=== PATIENT | female | born 1995 | race Caucasian/White ===

== ENCOUNTER 2017-02-10 16:56 | Emergency (ER) | payer BC ==
[~2017-02-10] VITALS: Ht 175.3 cm; Wt 106.0 kg
[2017-02-10 17:07] VITALS: TEMP 37.2; Ht 175.3 cm; Wt 106.0 kg
[2017-02-10] MEDS ORDERED: SODIUM CHLORIDE 0.9% 1000ML 500 ML IV STA (18:12)
[2017-02-10] MEDS ORDERED: ONDANSETRON INJ 2 MG/ML 2 ML VIAL IV STA (18:12)
--- NOTE | 2017-02-10 18:19 | EMERGENCY ROOM VISIT NOTE ---
History Report prepared by Rose: Gaurav Benson Under the Supervision of: Dr. Blade Ruiz M.D. First contact with patient: 18:07 Chief Complaint: ABDOMINAL PAIN Stated Complaint: PAIN IN RT SIDE OF ABDOMEN, NAUSEA, VOMITING Nursing Triage Summary: right sided abd pain since 1230 today +n/v no urinary complaints History of Present Illness The patient is a 21 year old female who presents to the Emergency Room with complaints of persistent right sided abdominal pain beginning about 6 hours ago. She notes that she was getting ready for class when her pain began suddenly. She notes having nausea and vomiting at the time her pain began. She reports her pain does not radiate, but she has some back pain which is not as painful as her abdomen. The patient rates her pain a 6/10 in severity. She has had some burning with urination, but has not had any vaginal discharge. She is currently on her period which is normal for her, but does not feel like this is a menstrual cramp. The patient denies having any fever, or constipation. She has not taken anything for her pain, and she has never had this pain before. The patient denies any past surgeries, and any history of ovarian cysts. The patient reports taking control and Lexapro. Source of History: patient Onset: 6 hours ago Position: abdomen (right sided) Symptom Intensity: 6/10 Quality: other (abdominal pain) Timing: other (persistent) Associated Symptoms: + back pain, + nausea, + urinary symptoms (burning with urination), + vomiting, No fevers Note: The patient denies constipation. Review of Systems See HPI for pertinent positives & negatives. A total of 10 systems reviewed and were otherwise negative. Past Medical & Surgical Medical Problems: (1) No Known Active Medical Problems Family History No pertinent family history stated. Social History Smoking Status: Never Smoker Occupation Status: [email or web address] student Current/Historical Medications Scheduled Control Pills ( Control Pills), 1 TAB PO DAILY Escitalopram (Lexapro), 10 MG PO DAILY Ondasetron Odt (Zofran Odt), 4 MG SL Q6H Tamsulosin Hcl (Flomax), 0.4 MG PO DAILY Scheduled PRN Oxycodone Ir (Roxicodone Ir), 1-2 TAB PO Q4H PRN for Pain Allergies Coded Allergies: No Known Allergies (Unverified , 02/10/17) Physical Exam Vital Signs Date Time Temp Pulse Resp B/P Pulse Ox O2 Delivery O2 Flow Rate FiO2 02/10/17 21:43 68 16 143/78 98 Room Air 02/10/17 21:00 78 18 142/84 97 Room Air 02/10/17 19:00 76 18 156/98 96 02/10/17 17:07 37.2 95 16 152/88 97 Room Air Physical Exam GENERAL: Patient is in no acute distress. HEENT: No acute trauma, normocephalic atraumatic, mucous membranes moist, no nasal congestion, no scleral icterus. NECK: No stridor, no adenopathy, no meningismus, trachea is midline. LUNGS: Clear to auscultation bilaterally, no wheeze, no rhonchi, breath sounds equal. HEART: Without murmurs gallops or rubs, regular rate and rhythm. ABDOMEN: Soft; Moderate tenderness in the right lower quadrant; bowel sounds positive, no hernias, no peritonitis. EXTREMITIES: No cyanosis or edema, full range of motion of all the joints without pain or difficulty, no signs for acute trauma. NEUROLOGIC: Oriented x 3, no acute motor or sensory deficits, no focal weakness. SKIN: No rash, no jaundice, no diaphoresis. Medical Decision & Procedures ER Provider Diagnostic Interpretation: Radiology results and stated below per my review and radiologist interpretation: ABDOMEN AND PELVIS CT WITH IV AND ORAL CONTRAST FINDINGS: Lung bases are clear. Mild fatty infiltration of liver. Gallbladder is negative for distention. Pancreas and spleen unremarkable. Left kidney enhances uniformly. Trace amount of perinephric fluid right kidney with mild right hydronephrosis. 2.5 mm partially obstructing calculus proximal right ureter. Bowel pattern is considered nonobstructive throughout. Bladder is midline. There are no contained calcifications. There is no free fluid within the pelvic cul-de-sac. Small bilateral ovarian follicular cysts. Normal appendix. IMPRESSION: 1. 2.5 mm obstructing calculus proximal right ureter. 2. Mild right hydronephrosis. 3. Fat infiltration of liver. 4. Otherwise negative study Electronically signed by: Trae Lemus M.D. 02/10/2017 9:06 PM Dictated Date/Time: 02/10/2017 9:04 PM ABDOMINAL ULTRASOUND, RIGHT LOWER QUADRANT FINDINGS: The appendix is not identified on this exam. IMPRESSION: The appendix is not identified. Study is nondiagnostic for potential appendicitis. Electronically signed by: Trae Lemus M.D. 02/10/2017 8:07 PM Dictated Date/Time: 02/10/2017 8:07 PM Laboratory Results 02/10/17 18:50 Red Blood Count 4.57, Mean Corpuscular Volume 76.6, Mean Corpuscular Hemoglobin 25.8, Mean Corpuscular Hemoglobin Concent 33.7, Mean Platelet Volume 8.8, Neutrophils (%) (Auto) 88.2, Lymphocytes (%) (Auto) 7.6, Monocytes (%) (Auto) 3.8, Eosinophils (%) (Auto) 0.0, Basophils (%) (Auto) 0.2, Neutrophils # (Auto) 13.51, Lymphocytes # (Auto) 1.16, Monocytes # (Auto) 0.58, Eosinophils # (Auto) 0.00, Basophils # (Auto) 0.03 02/10/17 18:50 Test 02/10/17 18:50 White Blood Count 15.31 K/uL (4.8-10.8) Red Blood Count 4.57 M/uL (4.2-5.4) Hemoglobin 11.8 g/dL (12.0-16.0) Hematocrit 35.0 % (37-47) Mean Corpuscular Volume 76.6 fL (80-100) Mean Corpuscular Hemoglobin 25.8 pg (25-34) Mean Corpuscular Hemoglobin Concent 33.7 g/dl (32-36) Platelet Count 428 K/uL (130-400) Mean Platelet Volume 8.8 fL (7.4-10.4) Neutrophils (%) (Auto) 88.2 % Lymphocytes (%) (Auto) 7.6 % Monocytes (%) (Auto) 3.8 % Eosinophils (%) (Auto) 0.0 % Basophils (%) (Auto) 0.2 % Neutrophils # (Auto) 13.51 K/uL (1.4-6.5) Lymphocytes # (Auto) 1.16 K/uL (1.2-3.4) Monocytes # (Auto) 0.58 K/uL (0.11-0.59) Eosinophils # (Auto) 0.00 K/uL (0-0.5) Basophils # (Auto) 0.03 K/uL (0-0.2) RDW Standard Deviation 41.9 fL (36.4-46.3) RDW Coefficient of Variation 14.9 % (11.5-14.5) Immature Granulocyte % (Auto) 0.2 % Immature Granulocyte # (Auto) 0.03 K/uL (0.00-0.02) Urine Color YELLOW Urine Appearance CLEAR (CLEAR) Urine pH 7.0 (4.5-7.5) Urine Specific [place] 1.027 (1.000-1.030) Urine Protein NEG (NEG) Urine Glucose (UA) NEG (NEG) Urine Ketones 2+ (NEG) Urine Occult Blood 3+ (NEG) Urine Nitrite NEG (NEG) Urine Bilirubin NEG (NEG) Urine Urobilinogen NEG (NEG) Urine Leukocyte Esterase NEG (NEG) Urine WBC (Auto) 1-5 /hpf (0-5) Urine RBC (Auto) >30 /hpf (0-4) Urine Hyaline Casts (Auto) 1-5 /lpf (0-5) Urine Epithelial Cells (Auto) >30 /lpf (0-5) Urine Bacteria (Auto) NEG (NEG) Urine Mucus PRESENT (NONE PRSENT) Urine Yeast (Auto) (NONE PRSENT) Anion Gap 11.0 mmol/L (3-11) Est Creatinine Clear Calc Drug Dose 90.3 ml/min Estimated GFR () 68.9 Estimated GFR (Non- 59.4 BUN/Creatinine Ratio 8.3 (10-20) Calcium Level 9.5 mg/dl (8.5-10.1) Total Bilirubin 0.2 mg/dl (0.2-1) Aspartate Amino Transf (AST/SGOT) 34 U/L (15-37) Alanine Aminotransferase (ALT/SGPT) 37 U/L (12-78) Alkaline Phosphatase 103 U/L (45-117) Total Protein 8.5 gm/dl (6.4-8.2) Albumin 3.9 gm/dl (3.4-5.0) Globulin 4.6 gm/dl (2.5-4.0) Albumin/Globulin Ratio 0.8 (0.9-2) Lipase 171 U/L (73-393) Human Chorionic Gonadotropin, Qual NEG (NEG) Laboratory results reviewed by me. Medications Administered Medications (Trade) Dose Ordered Sig/Macho Route Start Time Stop Time Status Last Admin Dose Admin Sodium Chloride (Nss 1000ml) 500 ml @ 999 mls/hr Q31M STAT IV 02/10/17 18:12 02/10/17 18:42 DC 02/10/17 18:12 999 MLS/HR Ondansetron HCl (Zofran Inj) 4 mg NOW STAT IV 02/10/17 18:12 02/10/17 18:18 DC 02/10/17 18:59 4 MG Oxycodone HCl (Roxicodone Immediate Rel 5MG Home Pack) 1 homepack UD ONCE PO 02/10/17 21:30 02/10/17 21:31 DC 02/10/17 21:39 1 HOMEPACK Ondansetron HCl (ZOFRAN ODT 4MG Home Pack) 1 homepack UD ONCE PO 02/10/17 21:30 02/10/17 21:31 DC 02/10/17 21:39 1 HOMEPACK Tamsulosin HCl (Flomax Cap) 0.4 mg NOW ONCE PO 02/10/17 21:30 02/10/17 21:31 DC 02/10/17 21:39 0.4 MG ED Course 1806: The patient was evaluated in room B9. A complete history and physical exam was performed. 1811: Ordered Zofran Inj 4 mg IV, and NSS 500 ml @ 999 mls/hr IV. 2119: Reevaluated the patient. Discussed results and discharge instructions: She verbalized understanding and agreement. The patient is ready for discharge. Medical Decision Differentials include appendicitis or ovarian cyst, biliary colic, renal colic, pancreatitis, UTI, renal stone, musculoskeletal pain, or hernia. There is a moderate leukocytosis at 15,000, this could be consistent with infection or just consistent with her pain. No concerning anemia. No significant electrolyte abnormality, kidney failure, hepatitis or pancreatitis. testing was negative. Urinalysis shows hematuria, no infection. Abdominal ultrasound could not identify the appendix. Abdominal and pelvis CT shows a normal appendix, a right ureteral stone with hydronephrosis was noted. The patient received IV saline, she was given IV Zofran. She did not want anything for pain. She was given oral Flomax. The patient has acute renal colic. This explains her presentation. She is being discharged with a urine strainer, oxycodone, Motrin and Zofran. She was encouraged to follow with [facility] as she may need a urology referral. She should return here for fever, vomiting or uncontrolled pain. [place] Drug Monitoring Program Search Results: patient reviewed within database, no issues identified Impression Primary Impression: Renal colic Additional Impression: Right sided abdominal pain Scribe Attestation The scribe's documentation has been prepared under my direction and personally reviewed by me in its entirety. I confirm that the note above accurately reflects all work, treatment, procedures, and medical decision making performed by me. Departure Information Dispostion Home / Self-Care Prescriptions Ondasetron Odt (ZOFRAN ODT) 4 Mg Tab 4 MG SL Q6H for Nausea, #12 TAB Prov: Blade Ruiz M.D. 02/10/17 Oxycodone Ir (Roxicodone Ir) 5 Mg Tab 1-2 TAB PO Q4H Y for Pain, #15 TAB Prov: Blade Ruiz M.D. 02/10/17 Tamsulosin Hcl (FLOMAX) 0.4 Mg Cap 0.4 MG PO DAILY, #10 CAP Prov: Blade Ruiz M.D. 02/10/17 Referrals No Doctor, Assigned (PCP) Patient Instructions [facility] Additional Instructions fluids strain all the urine for a stone follow with [facility] wednesday for a recheck flomax daily to help pass the stone motrin and or tylenol for pain oxy ir 1-2 tab every 4 hours for severe pain zofran 1 tab every 6 hours for nausea return for fever, vomiting or uncontrolled pain Problem Qualifiers
[2017-02-10] MEDS ORDERED: ESCI10TA17 PO (18:25)
[2017-02-10] MEDS ORDERED: BCPILLS PO (18:25)
[2017-02-10] MEDS ORDERED: OPTIRAY 320 IV PRN (18:30)
[2017-02-10 19:13] LABS: MEAN CELL VOLUME 76.6 fL (80-100); MEAN CORPUSCULAR HEMOGLOBIN 25.8 pg (25-34); MEAN CORPUSCULAR HGB CONC 33.7 g/dl (32-36); MEAN PLATELET VOLUME 8.8 fL (7.4-10.4); PLATELET COUNT 428 K/uL (130-400); RED BLOOD COUNT 4.57 M/uL (4.2-5.4); WHITE BLOOD COUNT 15.31 K/uL (4.8-10.8)
[2017-02-10 19:33] LABS: URINE APPEARANCE CLEAR (CLEAR); URINE BILIRUBIN NEG (NEG); URINE COLOR YELLOW; URINE EPITHELIAL CELL AUTO >30 /lpf (0-5); URINE NITRITE NEG (NEG); URINE SPECIFIC GRAVITY 1.027 (1.000-1.030); UROBILINOGEN NEG (NEG); ZZUR CULT IF INDIC CLEAN CATCH YES
[2017-02-10 19:36] LABS: MANUAL MICROSCOPIC REQUIRED? NO; REVIEW REQ? YES
[2017-02-10 19:40] LABS: BASO % 0.2 %; BASO ABS # 0.03 K/uL (0-0.2); COMPLETE YES; IG% 0.2 %; LYMPH % 7.6 %; LYMPH ABS # 1.16 K/uL (1.2-3.4); MONO % 3.8 %; NEUT % 88.2 %
[2017-02-10 19:44] LABS: URINE MUCUS PRESENT (NONE PRSENT)
[2017-02-10 19:46] LABS: PREG INTERNAL NEGATIVE QC NEG CLEAR BACKGROUND; PREG INTERNAL POSITIVE QC POS CONTROL LINE
[2017-02-10 19:50] LABS: BUN/CREATININE RATIO 8.3 (10-20); CALCIUM 9.5 mg/dl (8.5-10.1); CREATININE 1.3 mg/dl (0.60-1.20); POTASSIUM 3.7 mmol/L (3.5-5.1)
[2017-02-10 19:53] LABS: ALB/GLOB RATIO 0.8 (0.9-2)
--- NOTE | 2017-02-10 20:09 | DIAGNOSTIC IMAGING REPORT ---
ABDOMINAL ULTRASOUND, RIGHT LOWER QUADRANT HISTORY: ABDOMINAL PAIN. COMPARISON: None. FINDINGS: The appendix is not identified on this exam. IMPRESSION: The appendix is not identified. Study is nondiagnostic for potential appendicitis. Electronically signed by: Trae Lemus M.D. 02/10/2017 8:07 PM Dictated Date/Time: 02/10/2017 8:07 PM
--- NOTE | 2017-02-10 21:07 | DIAGNOSTIC IMAGING REPORT ---
ABDOMEN AND PELVIS CT WITH IV AND ORAL CONTRAST CT DOSE: 1120.94 mGycm HISTORY: Pain ABDOMINAL PAIN/GI TECHNIQUE: Multiaxial CT images of the abdomen and pelvis were performed following the use of intravenous and oral contrast. COMPARISON STUDY: None. FINDINGS: Lung bases are clear. Mild fatty infiltration of liver. Gallbladder is negative for distention. Pancreas and spleen unremarkable. Left kidney enhances uniformly. Trace amount of perinephric fluid right kidney with mild right hydronephrosis. 2.5 mm partially obstructing calculus proximal right ureter. Bowel pattern is considered nonobstructive throughout. Bladder is midline. There are no contained calcifications. There is no free fluid within the pelvic cul-de-sac. Small bilateral ovarian follicular cysts. Normal appendix. IMPRESSION: 1. 2.5 mm obstructing calculus proximal right ureter. 2. Mild right hydronephrosis. 3. Fat infiltration of liver. 4. Otherwise negative study Electronically signed by: Trae Lemus M.D. 02/10/2017 9:06 PM Dictated Date/Time: 02/10/2017 9:04 PM
[2017-02-10] MEDS ORDERED: OXYC1TAB3 PO (21:22)
[2017-02-10] MEDS ORDERED: ONDA4TAB10 SL (21:22)
[2017-02-10] MEDS ORDERED: TAMS0.4C38 PO (21:22)
[2017-02-10] MEDS ORDERED: OXYCODONE IR HOME PACK PO ONE (21:30)
[2017-02-10] MEDS ORDERED: ONDANSETRON HOME PACK 4MG OD TAB PO ONE (21:30)
[2017-02-10] MEDS ORDERED: TAMSULOSIN HCL 0.4 MG CAP PO ONE (21:30)
[2017-02-10 21:43] VITALS: BP 143/78; PULSE 68; O2SAT 98
== END 2017-02-10 21:46 | disposition home or self-care (01) ==
LOC: C.EDB 16:59
DX: N23 Unspecified renal colic (principal); R10.11 Right upper quadrant pain; R10.31 Right lower quadrant pain; N20.0 Calculus of kidney; K76.0 Fatty (change of) liver, not elsewhere classified; R11.2 Nausea with vomiting, unspecified; R30.0 Dysuria; M54.9 Dorsalgia, unspecified; Z79.3 Long term (current) use of hormonal contraceptives